=== PATIENT | male | born 1950 | race Caucasian/White ===

== ENCOUNTER 2025-05-02 10:46 | Outpatient (AMB) | payer MEDICARE, MEDICAID, SELFPAY ==
--- NOTE | 2025-05-02 10:48 | MHC.OFFVIS ---
Vital Signs 05/02/25 10:54 Height 5 ft 4 in Weight 146 lb 4 oz BMI 25.1 BP 132/68 Blood Pressure Location Lt brachial Position Sitting Pulse 50 Pulse Source Pulse Oximeter Pulse Oximetry (%) 98 Oxygen Delivery Method Room Air Intake Visit Reasons: Sjogrens Intake Note: Patient is a new patient, externally referred by Leatha Galloway NP for Sjogren's. [employer]vertising Material Dist[employer] Required: No Accompanied by: Daughter Allergies No Known Allergies Allergy (Verified 05/02/25 10:55) HPI Comments Details: 74 years old with a PMH of UC, primary biliary cholangitis diagnosed at 42 years old, type 2 diabetes, history of portal hypertension status post splenectomy, cholecystectomy presenting in for the evaluation of underlying autoimmune disorder given positive EARL high titer and positive SSA SSB antibody. Patient is accompanied by his daughter. Patient endorses joint pain. Joint pain is in hands, shoulders and knees for past 10 years ago. He also has back pain s/p surgery in 1999.Lumbar fusion was done at that time. He endorses photosensitivty, denies Raynauds,no oral uclers,he has signifcantly dry mouth, no dry eyes. no skin rashes no bood clots, no bloody diarreaha, no uvieitis. no recurrent infections. Patient endorses pain while taking a deep breath. This pain is deep in his ribs. All labs patient had AERL 1:2560 speckled pattern, with positive SSA SSB, negative dsDNA, positive antimitochondrial antibody FH: Daughter has primary biliary cholangitis, she has positive EARL and SSA antibody PHYSICAL EXAM General: Comfortable CVS: RRR Respiratory: clear to auscultation bilaterally. Good respiratory effort. Patient reports pain while taking a deep breath Skin: No lesions seen, sun spots noted on the arms MSK: Patient is able to make a fist bilaterally, no active synovitis noted in any of the joints. Nontender PIPs MCPs. Patient has good range of motion both shoulders bilaterally. Patient has good range of motion of the hips bilaterally. Patient does have crepitus noted in the knees on flexion and extension. [facility] Medical History (Updated 05/02/25 @ 12:43 by Amanda Schmidt MD) Sjogren's syndrome Tremors of nervous system Forgetfulness Lacunar infarction Alcohol abuse Ulcerative colitis Allergic rhinitis Nontraumatic compression fracture of T9 vertebra Cirrhosis GERD (gastroesophageal reflux disease) Heart murmur Hepatitis C Esophageal varices Sessile colonic polyp Abnormal EKG Complex renal cyst Type 2 diabetes mellitus H/O: HTN (hypertension) Surgical History (Updated 05/02/25 @ 10:57 by Kelsy Resendez CMA) Hx of cholecystectomy History of back surgery Social History (Updated 05/02/25 @ 10:58 by Kelsy Resendez CMA) Alcohol intake: former Patient Tobacco Use Status: Never used Tobacco e-Cigarette/Vaping Use: Never Used Physical Exam Vital Signs: Last Vital Signs Pulse 50 05/02/25 10:54 BP 132/68 05/02/25 10:54 Pulse Ox 98 05/02/25 10:54 Oxygen Delivery Method Room Air 05/02/25 10:54 BMI result Body Mass Index 25.1 Assessment & Plan Assessment & Plan (1) Sjogren's syndrome: Code(s): M35.00 - Sjogren syndrome, unspecified Category: Medical Qualifiers: Sjogren organ or system involvement: dental involvement Qualified Code(s): M35.0C - Sjogren syndrome with dental involvement (2) Positive antinuclear antibody: Code(s): R76.89 - Other specified abnormal immunological findings in serum Category: Medical (3) Pleuritic chest pain: Code(s): R07.81 - Pleurodynia Category: Medical Plan 74-year-old male with a history of primary biliary cholangitis, type 2 diabetes presenting to me for the evaluation of underlying autoimmune disease. Patient has a high titer ANA1:2560 speckled pattern with positive SSA SSB antibodies. He endorses photosensitivity, pleuritic chest pain, joint pain and dry mouth Patient does not exhibit typical sicca symptoms of dry eyes dry mouth. His dry mouth may be attributed to diabetes. At this time I will complete my workup including repeating EARL, EARL subsets, inflammatory markers, x-rays of the hands and knees. Given that he is endorsing pleuritic chest pain and Sjogren's disease can affect the lungs I will also obtain chest x-ray pulmonary function tests. I will also obtain an echocardiogram to rule out pulmonary hypertension. Based on the results of the blood work and imaging we will discuss further management in 4 weeks Orders: Orders Anti DNA DS Antibody Today R76.0 - Raised antibody titer Complete Blood Count Auto Diff Today R76.0 - Raised antibody titer Creatinine Today R76.0 - Raised antibody titer C Reactive Protein Today R76.0 - Raised antibody titer Erythrocyte Sedimentation Rate Today R76.0 - Raised antibody titer Histone Antibody Today R76.0 - Raised antibody titer Beta-2 Glycoprotein Antibody Today R76.0 - Raised antibody titer DNA Double Stranded-Crithidia Today R76.0 - Raised antibody titer Sm Sm/[employer] Antibodies Today R76.0 - Raised antibody titer Sjogren's Antibodies Today R76.0 - Raised antibody titer Cyclic Citrullinated Peptide Today R76.0 - Raised antibody titer Scleroderma 12 Panel Today R76.0 - Raised antibody titer Scleroderma 70 Antibody Today R76.0 - Raised antibody titer XR Hand Aime 2V Today M35.00 - Sjogren syndrome, unspecified, R76.89 - Other specified abnormal immunological findings in serum XR chest 1V Today M35.00 - Sjogren syndrome, unspecified, R76.89 - Other specified abnormal immunological findings in serum PFT pulmonary function test Today M35.00 - Sjogren syndrome, unspecified, R76.89 - Other specified abnormal immunological findings in serum Alanine Aminotransferase Today R76.0 - Raised antibody titer Aspartate Amino Transferase Today R76.0 - Raised antibody titer Complement C3 Today R76.0 - Raised antibody titer Complement C4 Today R76.0 - Raised antibody titer UA ClnCatch+Micro w/rflx Cult Today R76.0 - Raised antibody titer Protein Creatinine Ratio, Ur Today R76.0 - Raised antibody titer EARL Reflex Titer and Pattern Today R76.0 - Raised antibody titer Rheumatoid Factor Today R76.0 - Raised antibody titer Anti-Centromere B Antibodies Today R76.0 - Raised antibody titer XR Knee Aime 1or 2V Today M35.00 - Sjogren syndrome, unspecified, R76.89 - Other specified abnormal immunological findings in serum CA echo transthoracic complete Today M35.00 - Sjogren syndrome, unspecified, R76.89 - Other specified abnormal immunological findings in serum Coding Level of Care Code New Pt Level 4 (41482) Diagnoses Sjogren syndrome with dental involvement M35.0C Sjogren organ or system involvement: dental involvement Positive antinuclear antibody R76.89 Pleuritic chest pain R07.81
[2025-05-02 10:54] VITALS: BP 132/68; PULSE 50; O2SAT 98; BMI 25.1
== END 2025-05-02 11:57 | disposition home or self-care (01) ==
LOC: HO.RHES 10:47
PROVIDERS: PCP Internal Medicine; Visit Provider Student in an Organized Health Care Education/Training Program
DX: M35.0C Sjogren syndrome with dental involvement (principal); R76.0 Raised antibody titer; R07.81 Pleurodynia
CPT/HCPCS: 99204

== ENCOUNTER → 2025-05-02 10:46 | Outpatient (BNVA) | payer MEDICARE, MEDICAID, SELFPAY | PROVIDERS: PCP Internal Medicine; Visit Provider Student in an Organized Health Care Education/Training Program | DX: M35.0C Sjogren syndrome with dental involvement (principal); R76.89 Other specified abnormal immunological findings in serum; R07.81 Pleurodynia | CPT/HCPCS: 99202 ==

== ENCOUNTER 2025-05-09 09:51 | Outpatient (REF) | payer MEDICARE, MEDICAID, SELFPAY ==
[2025-05-09 14:06] LABS: Appearance Urine Clear; Glucose Urine UA >=1000 mg/dL (Negative); PH 6.5 (5.0-9.0); Specific Gravity - Urine >= 1.030 (1.005-1.025); UMIC TRIGGER UACC YES
[2025-05-09 14:26] LABS: Protein/Creatinine Ratio, Ur 0.42 (<0.2); Total Protein Urine Random 22 mg/dL (<12)
[2025-05-09 14:30] LABS: Hematocrit 43.1 % (42.0-52.0); Hemoglobin 15.0 g/dl (14.0-18.0); Imm Gran Abs Auto 0.01 X10*3/uL (0.00-0.03); Imm Gran Pct Auto 0.3 % (0.0-0.4); Lymphocytes Absolute Auto 1.0 X10*3/uL (1.2-4.9); MANUAL DIFF FLAG SCAN; Mean Corpuscular HGB Conc 34.8 g/dl (31.0-36.0); Mean Corpuscular Hemoglobin 31.4 pg (27.0-33.0); Mean Corpuscular Volume 90.4 fL (80.0-98.0); NRBC Abs Auto 0.000 X10*3/uL (0.0-0.012); NRBC Pct Auto 0.0 /100WBC (0.0-0.2); PLT CLUMP 1; Red Blood Count 4.77 X10*6/uL (4.60-5.80); SCAN SMEAR FLAG 1
[2025-05-09 14:50] LABS: Platelet Count 60 X10*3/uL (160-400); White Blood Count 3.5 X10*3/uL (4.8-10.8)
[2025-05-09 14:52] LABS: Alanine Aminotransferase 32 U/L (0-40); Aspartate Amino Transferase 42 U/L (5-37); Estimated Glomerular Filt Rate > 60
[2025-05-10 22:03] LABS: Antibody to SS-A Antigen >8.0 POS AI (<1.0 NEG); Antibody to SS-B Antigen 2.5 POS AI (<1.0 NEG); SM/Ribonucleoprotein Ab <1.0 NEG AI (<1.0 NEG); Smith Protein <1.0 NEG AI (<1.0 NEG)
[2025-05-11 15:23] LABS: ANA Titer 3 1:40 titer; Anti Nuclear Antibody Pattern Nuclear, Speckled; Anti Nuclear Antibody Screen POSITIVE (NEGATIVE); Anti Nuclear Antibody Titer 1:1280 titer
== END 2025-05-09 09:52 | disposition home or self-care (01) ==
LOC: HO.HKASLDS 09:51
PROVIDERS: PCP Internal Medicine; Visit Provider Student in an Organized Health Care Education/Training Program
DX: Z01.84 Encounter for antibody response examination (principal); R76.0 Raised antibody titer
CPT/HCPCS: 36415; 81001; 82565; 82570; 83516; 84156; 84182; 84450; 84460; 85025; 85652; 86038; 86039; 86140; 86146; 86160; 86200; 86225; 86235; 86255; 86431